=== PATIENT | female | born 1945 | race Caucasian/White ===

== ENCOUNTER 2017-05-20 10:51 | Observation (INO) | payer OTHER ==
[~2017-05-20] VITALS: Ht 160 cm; Wt 80.1 kg
[2017-05-20] MEDS ORDERED: SOD CHLORIDE 0.9% 1,000 ML IV STA (11:51)
[2017-05-20] MEDS ORDERED: ASPIRIN 325 MG TAB PO STA (11:51)
[2017-05-20] MEDS ORDERED: MULT-7 PO (12:07)
[2017-05-20] MEDS ORDERED: CHOL100062 PO (12:08)
[2017-05-20] MEDS ORDERED: GABA100C14 PO (12:09)
[2017-05-20 12:12] LABS: BASOPHILS % 0.3 % (0.0-2.0); EOSINOPHILS # 0.3 10^3/ul (0.0-0.5); HEMATOCRIT 37.5 % (37.0-47.0); HEMOGLOBIN 13.1 g/dl (12.0-16.0); LYMPHOCYTES # 1.8 10^3/ul (0.8-2.9); LYMPHOCYTES % 28.1 % (15.0-51.0); MEAN CORPUSCULAR HEMOGLOBIN 31.1 pg (29.0-33.0); MEAN CORPUSCULAR HGB CONC 34.9 g/dl (32.0-37.0); MEAN CORPUSCULAR VOLUME 89.1 fl (82.0-101.0); MEAN PLATELET VOLUME 10.6 fl (7.4-10.4); MONOCYTE # 0.5 10^3/ul (0.3-0.9); MONOCYTES % 7.2 % (0.0-11.0); NEUTROPHIL # 3.8 10^3/ul (1.6-7.5); NEUTROPHILS % 59.1 % (39.0-77.0); PLATELET COUNT 265 10^3/UL (140-415); RED BLOOD COUNT 4.21 10^6/ul (4.20-5.40); RED CELL DISTRIBUTION WIDTH 13.3 % (11.5-14.5); WHITE BLOOD COUNT 6.4 10^3/ul (4.8-10.8)
[2017-05-20 12:23] LABS: INR 0.82; PROTIME 11.3 Sec (12.2-14.2); PT RATIO 0.9
[2017-05-20 12:24] LABS: PARTIAL THROMBOPLASTIN TIME 28.6 Sec (25.0-35.0)
[2017-05-20 12:27] LABS: ALANINE AMINOTRANSFERASE 36 IU/L (13-69); ALBUMIN 4.2 g/dl (3.3-4.9); ALKALINE PHOSPHATASE 126 IU/L (42-121); ANION GAP 11 (8-16); ASPARTATE AMINO TRANSFERASE 30 IU/L (15-46); BILIRUBIN,INDIRECT 0.1 mg/dl (0-1.1); BILIRUBIN,TOTAL 0.1 mg/dl (0.2-1.3); BLOOD UREA NITROGEN 22 mg/dl (7-20); CALCIUM 9.6 mg/dl (8.4-10.2); CARBON DIOXIDE 27 mmol/L (21-31); CHLORIDE 105 mmol/L (97-110); CREATININE 0.57 mg/dl (0.44-1.00); GLUCOSE 94 mg/dl (70-220); POTASSIUM 4.7 mmol/L (3.5-5.1); SODIUM 138 mmol/L (135-144)
[2017-05-20 12:31] LABS: ALBUMIN/GLOBULIN RATIO 1.23; TOTAL PROTEIN 7.6 g/dl (6.1-8.1)
--- NOTE | 2017-05-20 12:50 | RADRPT ---
PROCEDURE: Chest radiograph CLINICAL INDICATION: Possible Stroke. COMPARISON: None relevant listed. TECHNIQUE: Single frontal chest radiograph. FINDINGS: The lungs are clear. No pleural effusion or focal parenchymal opacity. The aorta is unfolded. No cardiomegaly. No suspicious bone lesion. IMPRESSION: No acute cardiopulmonary abnormality. RPTAT: HLG Physician Yobani Date Time Electronically viewed and signed by Ike West Physician on 05/20/2017 12:49 LG/
[2017-05-20 12:53] LABS: TROPONIN-I < 0.012 ng/ml (0.00-0.12)
--- NOTE | 2017-05-20 12:59 | RADRPT ---
PROCEDURE: CT head without intravenous contrast CLINICAL INDICATION: Possible stroke. Right facial numbness. COMPARISON: None relevant listed. TECHNIQUE: Axial CT images from skull base to vertex with coronal and sagittal reformats. DOSE: The estimated administered radiation dose was CTDI vol = 45 mGy. DLP = 720 mGy-cm. One or mor e of the following dose reduction techniques were used: automated exposure control, adjustment of th e mA and/or kV according to patient size, or use of iterative reconstruction. FINDINGS: Parenchyma: No acute hemorrhage, large territorial infarction, or mass. Ventricles: No ventriculomegaly or ventricular effacement. Extra-axial spaces: No herniation or midline shift. Paranasal sinuses: Clear. Mastoids and middle ears: Clear. Visualized orbits: Normal. Vessels: No calcified atherosclerotic arterial plaque identified. Bones: Normal. Extracranial soft tissues: Normal. Additional comment: None. IMPRESSION: No acute intracranial abnormality. Durga West M.D. discussed findings with NANCY NAVARRO M.D. via telephone at 12:58 PM on 2016 with read back confirmation. RPTAT: HLG Physician Yobani Date Time Electronically viewed and signed by Physician Yobani on 05/20/2017 12:59 /
[2017-05-20] MEDS ORDERED: SOD CHLORIDE 0.9% 1,000 ML IV SCH (14:13)
--- NOTE | 2017-05-20 14:19 | ERA ---
ER Documentation Chief Complaint Date/Time DATE: 05/20/17 TIME: 14:14 Chief Complaint sent from clinic for facial numbness & tingling last night but resolved; HPI This is a 71-year-old female who is here for right facial droop. The patient states last night at 7 PM she developed sudden onset of right facial droop numbness with drooling. She said her right arm and leg have been numb and tingling for 6 weeks but they got worse last night at 7 PM as well. She said the symptoms stayed there all night long until this morning around 5 AM he started to improve. She says currently her face is back to normal but her tingling is also back to his baseline like it has been the past 6 weeks. Denies any weakness in the legs or arms only his face. No speech change or swallowing change. ROS All systems reviewed and are negative except as per history of present illness. Medications Home Meds Reported Medications Gabapentin* (Gabapentin*) 100 Mg Capsule, 100 MG PO TID, #90 CAP 05/20/17 Cholecalciferol* (Vitamin D3*) 1,000 Unit Tablet, 1000 UNIT PO BID, TAB 05/20/17 Multivitamin (Daily Multiple Vitamin) 1 Each Tablet, 1 EACH PO DAILY, TAB 05/20/17 Allergies Allergies: Coded Allergies: Penicillins (Verified Allergy, Unknown, 05/20/17) PMhx/Soc Medical and Surgical Hx: pt denies Medical Hx, pt denies Surgical Hx History of Surgery: No Anesthesia Reaction: No Hx Neurological Disorder: No Hx Respiratory Disorders: No Hx Cardiac Disorders: No Hx Psychiatric Problems: No Hx Miscellaneous Medical Probl: No Hx Alcohol Use: No Hx Substance Use: No Hx Tobacco Use: No Smoking Status: Never smoker FmHx Family History: No coronary disease Physical Exam Vitals Vital Signs Date Time Temp Pulse Resp B/P Pulse Ox O2 Delivery O2 Flow Rate FiO2 05/20/17 10:55 97.3 61 18 178/77 98 Physical Exam Const: Well-developed, well-nourished Head: Atraumatic, normocephalic Eyes: Normal Conjunctiva, PERRLA, EOMI, normal sclera, no nystagmus ENT: Normal External Ears, Nose and Mouth, moist mucus membranes. Neck: Full range of motion. No meningismus, no lymphadenopathy. Resp: Clear to auscultation bilaterally, no wheezing, rhonchi, rales Cardio: Regular rate and rhythm, no murmurs, S1 S2 present Abd: Soft, non tender x 4, non distended. Normal bowel sounds, no guarding or rebound, no pulsitile abdominal masses or bruits Skin: No petechiae or rashes, no ecchymosis , no maculopapular rash Back: No midline or flank tendernessWell-developed, well- nourishedAtraumatic, normocephalicNormal Conjunctiva, PERRLA, EOMI, normal sclera, no nystagmusNormal External Ears, Nose and Mouth, moist mucus membranes.Full range of motion. No meningismus, no lymphadenopathy.Clear to auscultation bilaterally, no wheezing, rhonchi, ralesRegular rate and rhythm, no murmurs, S1 S2 presentSoft, non tender x 4, non distended. Normal bowel sounds, no guarding or rebound, no pulsitile abdominal masses or bruitsNo petechiae or rashes, no ecchymosis , no maculopapular rashNo midline or flank tendernessNo cyanosis, or edema, FROM x 4, normal inspection, neurovascularly intact x 4 Ext: No cyanosis, or edema, FROM x 4, normal inspection, neurovascularly intact x 4 Neur: Awake and alert, STR 5/5 x 4, sensation intact x 4, no focal findings, cerebellum intac, since subjective tingling to the right arm and leg t Psych: Normal Mood and Affect Result Diagram: 05/20/17 1140 05/20/17 1140 Results 24 hrs Laboratory Tests Test 05/20/17 11:40 White Blood Count 6.410^3/ul Red Blood Count 4.2110^6/ul Hemoglobin 13.1g/dl Hematocrit 37.5% Mean Corpuscular Volume 89.1fl Mean Corpuscular Hemoglobin 31.1pg Mean Corpuscular Hemoglobin Concent 34.9g/dl Red Cell Distribution Width 13.3% Platelet Count 98623^3/UL Mean Platelet Volume 10.6fl Neutrophils % 59.1% Lymphocytes % 28.1% Monocytes % 7.2% Eosinophils % 5.0% Basophils % 0.3% Nucleated Red Blood Cells % 0.0/100WBC Neutrophils # 3.810^3/ul Lymphocytes # 1.810^3/ul Monocytes # 0.510^3/ul Eosinophils # 0.310^3/ul Basophils # 0.010^3/ul Nucleated Red Blood Cells # 0.010^3/ul Prothrombin Time 11.3Sec Prothrombin Time Ratio 0.9 INR International Normalized Ratio 0.82 Activated Partial Thromboplast Time 28.6Sec Sodium Level 138mmol/L Potassium Level 4.7mmol/L Chloride Level 105mmol/L Carbon Dioxide Level 27mmol/L Anion Gap 11 Blood Urea Nitrogen 22mg/dl Creatinine 0.57mg/dl Glucose Level 94mg/dl Calcium Level 9.6mg/dl Total Bilirubin 0.1mg/dl Direct Bilirubin 0.00mg/dl Indirect Bilirubin 0.1mg/dl Aspartate Amino Transf (AST/SGOT) 30IU/L Alanine Aminotransferase (ALT/SGPT) 36IU/L Alkaline Phosphatase 126IU/L Troponin I < 0.012ng/ml Total Protein 7.6g/dl Albumin 4.2g/dl Globulin 3.40g/dl Albumin/Globulin Ratio 1.23 Current Medications Medications (Trade) Dose Ordered Sig/Cassie Route PRN Reason Start Time Stop Time Status Last Admin Dose Admin Sodium Chloride (NS) 1,000 ml @ 1,000 mls/hr Q1H STAT IV 05/20/17 11:51 05/20/17 12:50 DC 05/20/17 12:02 Aspirin (Aspirin) 325 mg ONCE STAT PO 05/20/17 11:51 05/20/17 11:53 DC Procedures/MDM PROCEDURE: CT head without intravenous contrast CLINICAL INDICATION: Possible stroke. Right facial numbness. COMPARISON: None relevant listed. TECHNIQUE: Axial CT images from skull base to vertex with coronal and sagittal reformats. DOSE: The estimated administered radiation dose was CTDI vol = 45 mGy. DLP = 720 mGy-cm. One or more of the following dose reduction techniques were used: automated exposure control, adjustment of the mA and/or kV according to patient size, or use of iterative reconstruction. FINDINGS: Parenchyma: No acute hemorrhage, large territorial infarction, or mass. Ventricles: No ventriculomegaly or ventricular effacement. Extra-axial spaces: No herniation or midline shift. Paranasal sinuses: Clear. Mastoids and middle ears: Clear. Visualized orbits: Normal. Vessels: No calcified atherosclerotic arterial plaque identified. Bones: Normal. Extracranial soft tissues: Normal. Additional comment: None. IMPRESSION: No acute intracranial abnormality. Durga West M.D. discussed findings with NANCY NAVARRO M.D. via telephone at 12:58 PM on 05/20/2017 with read back confirmation. RPTAT: HLG Ike West Physician Date Time Electronically viewed and signed by Physician Yobani on 05/20/2017 12: 59 LG/ CC: NANCY NAVARRO DO PROCEDURE: Chest radiograph CLINICAL INDICATION: Possible Stroke. COMPARISON: None relevant listed. TECHNIQUE: Single frontal chest radiograph. FINDINGS: The lungs are clear. No pleural effusion or focal parenchymal opacity. The aorta is unfolded. No cardiomegaly. No suspicious bone lesion. IMPRESSION: No acute cardiopulmonary abnormality. RPTAT: HLG Ike West Physician Date Time Electronically viewed and signed by Physician Yobani on 05/20/2017 12: 49 LG/ CC: NANCY NAVARRO DO We will admit the patient for TIA workup Departure Diagnosis: Primary Impression: TIA (transient ischemic attack) Qualified Code: G45.9 - Transient cerebral ischemia, unspecified type Condition: Stable NANCY NAVARRO DO May 20, 2017 14:19
[2017-05-20] MEDS ORDERED: ONDANSETRON 4 MG INJ IV PRN ×2 (14:30→16:00)
[2017-05-20] MEDS ORDERED: ACETAMINOPHEN 325 MG TAB PO PRN ×2 (14:30→16:00)
--- NOTE | 2017-05-20 15:59 | HP ---
Date/Time of Note Date/Time of Note DATE: 05/20/17 TIME: 15:54 Assessment/Plan VTE Prophylaxis VTE Prophylaxis Intervention: SCD's Assessment/Plan Chief Complaint/Hosp Course Impression and plan 1. Right facial droop and numbness. Symptoms appear transient. Suspect TIA. Follow-up on MRI of the brain as well as carotid Doppler and echo. Symptoms do appear resolved at present. Will follow up with imaging. 2. Suspect hypertension. Patient noted with blood pressure as high as 178/77 on admission. Will monitor for now. 3. Obesity. Weight reduction advised. Admission process time greater than 30 minutes Discussed plan of care with Dr. Richards Problems: HPI/ROS Admit Date/Time Admit Date/Time Hx of Present Illness This is a 71-year-old female with no reported past medical history who came to [facility] due to reports of right facial numbness and facial drooping with also right upper extremity numbness. Of note patient does report having 6 months duration of right arm numbness at times but no other pain associated or weakness associated with it. She reported no upper or lower extremity weakness bilaterally. She stated that her symptoms started roughly at 7 PM last night however resolved around 2:58 AM the morning of admission. She did go to her primary care physician due to these issues and was referred to [facility] for further evaluation. Upon further examination she had BMP and CBC with no significant findings. She was noted with a blood pressure as high as 178 or 77. She did mention when her symptoms occurred she also experienced a bout of headache that was more on the occipital region however she denies any history of high blood pressure nor does she know her blood pressure was at the time of her headache and when symptoms of facial droop and numbness occurred. Patient at present during physical exam with no remarkable discrepancies. She is seen with strength +5 in bilateral upper and lower extremities. No facial droop seen. No aphasia or dysphasia. She is alert and oriented 4. Initial imaging of her brain with CT scan noncontrast showed no acute intracranial abnormality. We will evaluate her for the aformentiond issues. ROS 12 point review of systems obtained and entirely negative except as mentioned in the history of present illness PMH/Family/Social Past Medical History Medical/surgical history 1. Reports none Family History Significant Family History: no pertinent family hx Social History Alcohol Use: none Smoking Status: Never smoker Drug Use: none Exam/Review of Systems Vital Signs Vitals Vital Signs Date Time Temp Pulse Resp B/P Pulse Ox O2 Delivery O2 Flow Rate FiO2 05/20/17 13:00 97.9 59 16 136/78 98 Exam Constitutional: alert, oriented Psych: nl mood/affect Head: normocephalic Eyes: nl conjunctiva Neck: supple Respiratory: clear to auscultation, normal air movement Cardiovascular: bruits, regular rate and rhythm Gastrointestinal: non-tender, soft Musculoskeletal: nl extremities to inspection, nl gait and stance Neurological: INSPECTOR RUBBER STAMP DIE II-XII intact, nl mental status, nl speech Skin: nl turgor, rash or lesions Labs Result Diagram: 05/20/17 1140 05/20/17 1140 Medications Medications Current Medications Sodium Chloride (NS) 1,000 ml @ 80 mls/hr [id number] IV ; Start 05/20/17 at 14:13 ; Stop 05/21/17 at 02:42 BETTINA RUIZ May 20, 2017 15:59
[2017-05-20] MEDS ORDERED: MAGNESIUM HYDROXIDE 30ML CUP PO PRN (16:00)
[2017-05-20] MEDS ORDERED: HYDROCODONE/APAP (5/325) TAB PO PRN ×2 (16:00)
[2017-05-20] MEDS ORDERED: NACL 0.9% 3 ML SYG IV SCH (16:00)
[2017-05-20] MEDS ORDERED: DOCUSATE SODIUM 100 MG CAP PO PRN (16:00)
[2017-05-20] MEDS ORDERED: morphine 2 MG INJ IV PRN (16:00)
[2017-05-20] MEDS ORDERED: ACETAMINOPHEN 650 MG SUPP PR PRN (16:00)
[2017-05-20] MEDS ORDERED: BISACODYL 10 MG SUPP PR PRN (16:00)
[2017-05-20 16:32] VITALS: TEMP 98.1
--- NOTE | 2017-05-20 16:44 | RADRPT ---
PROCEDURE: US Carotids. CLINICAL INDICATION: CVA TECHNIQUE: Multiple sonographic of the carotid arteries were obtained utilizing ramirez scale imaging . Color and Doppler imaging was performed. The images were reviewed on a PACS workstation. COMPARISON: No prior studies are available for comparison. FINDINGS: Location Right Left CCA 106 cm/sec 67 cm/sec Prox ICA 64 cm/sec 73 cm/sec Mid ICA 61 cm/sec 57 cm/sec Dist ICA 56 cm/sec 67 cm/sec ECA 50 cm/sec 62 cm/sec ICA/CCA 0.8 0.8 Antegrade flow is seen within the vertebral arteries bilaterally. No significant plaque is seen with in the carotid system bilaterally. No hemodynamically significant stenosis or occlusion is identifi ed. IMPRESSION: 1. No evidence for hemodynamically significant stenosis - validated velocity measurements with angio graphic measurements, velocity criteria are extrapolated from diameter data as defined by the Societ y of Radiologists in Ultrasound Consensus Conference Radiology 2003; 229;340-346. This study does i ndirectly reference the measurement of the distal ICA diameter as the denominator for stenosis measu rement. 2. Antegrade flow seen within the vertebral arteries bilaterally. SRU Consensus Conference Criteria for the Diagnosis of Carotid Artery Stenosis Degree of Stenosis, % ICA PSV, cm/sec Plaque Estimate, % ICA/CCA PSV Ratio Normal <125 None <2.0 <50 <125 <50 <2.0 50 69 125-230 >50 2.0-4.0 >70 but less than near occlusion >230 >50 <4.0 Near occlusion High, low, or undetectable Visible Variable Total occlusion Undetectable Visible, no detectable lumen Not applicable *Cartoid artery stenosis: ramirez-scale and Doppler US diagnosis. Society of Radiologists in Ultrasound Consensus Conference. Radiology 2003; 229: 340-346 RPTAT: QQ .Hebert Esparza MD, Date Time Electronically viewed and signed by .Hebert Esparza MD, MD on 05/20/2017 16:44 .A/
[2017-05-20 17:28] VITALS: BP 179/80; RESP 18
--- NOTE | 2017-05-20 17:29 | RADRPT ---
PROCEDURE: MR Brain without intravenous contrast CLINICAL INDICATION: Cerebrovascular accident. COMPARISON: CT 05/20/2017. TECHNIQUE: Multiplanar multi-sequence images of the brain were obtained. Images acquired on a 3.0 T esla magnet. FINDINGS: Parenchyma: No acute hemorrhage, infarction, or mass. There are a few subcortical white matter FLAIR hyperintense foci, a nonspecific finding common for age. Ventricles: No ventricular enlargement or ventricular effacement. Extra-axial spaces: No herniation or midline shift. Orbits: Normal. Major intracranial flow voids: Preserved. Paranasal sinuses: Clear. Mastoids and middle ears: Clear. Bones: Old fracture of the right lamina papyracea. Extracranial soft tissues: Normal. Additional comment: None. IMPRESSION: No acute intracranial abnormality. RPTAT: HLG Physician Yobani Date Time Electronically viewed and signed by Physician Yobani on 05/20/2017 17:29 /
[2017-05-20 17:44] VITALS: PULSE 59
[2017-05-20 18:24] VITALS: Ht 160 cm; Wt 80.1 kg
[2017-05-20 18:55] VITALS: BP 149/69
[2017-05-20 20:00] VITALS: BP 131/65; PULSE 61; RESP 20
[2017-05-20 20:06] VITALS: PULSE 60
[2017-05-20] MEDS: GABAPENTIN 100 MG CAP PO SCH (20:54)
[2017-05-20] MEDS: CHOLECALCIFEROL 1,000 UNIT TAB PO SCH (21:17)
[2017-05-21] VITALS (7 sets, daily range): BP systolic 126–137; BP diastolic 65–77; PULSE 58–65; RESP 16–20
[2017-05-21 07:47] LABS: ALBUMIN 3.7 g/dl (3.3-4.9); ALBUMIN/GLOBULIN RATIO 1.19; BILIRUBIN,INDIRECT 0.2 mg/dl (0-1.1); BILIRUBIN,TOTAL 0.2 mg/dl (0.2-1.3); CALCIUM 9.1 mg/dl (8.4-10.2); CHOL/HDL RATIO 3.5 RATIO; CREATININE 0.6 mg/dl (0.44-1.00); MAGNESIUM 2.1 mg/dl (1.7-2.5); PHOSPHORUS 4.3 mg/dl (2.5-4.9); POTASSIUM 4.3 mmol/L (3.5-5.1); TOTAL PROTEIN 6.8 g/dl (6.1-8.1)
[2017-05-21 07:54] LABS: T3 UPTAKE 37.8 % (23.5-40.5)
[2017-05-21 08:08] LABS: THYROID STIMULATING HORMONE 2.42 MIU/L (0.465-4.680)
[2017-05-21] MEDS: GABAPENTIN 100 MG CAP PO SCH (08:55)
[2017-05-21] MEDS: CHOLECALCIFEROL 1,000 UNIT TAB PO SCH (08:55)
[2017-05-21] MEDS ORDERED: FAMOTIDINE 20 MG INJ IV SCH (09:00)
[2017-05-21] MEDS ORDERED: OMEG-135 PO (10:50)
--- NOTE | 2017-05-21 10:56 | PDOCDIS ---
Discharge Instructions DIAGNOSIS Discharge Diagnosis 1. Right facial droop and numbness, suspect TIA 2. Suspect hypertension. 3. Obesity. 4. Cephalgia. CONDITION Patient Condition: Stable HOME CARE INSTRUCTIONS: Special Diet: Cardiac FOLLOW UP/APPOINTMENTS Follow-up Plan 1. Follow up with your primary care provider in one week BETTINA RUIZ May 21, 2017 10:56
--- NOTE | 2017-05-21 12:21 | DS ---
Date/Time of Note Date/Time of Note DATE: 05/21/17 TIME: 12:18 Discharge Summary Admission/Discharge Info Admit Date/Time May 20, 2017 at 14:13 Discharge Date/Time May 21, 2017 at 11:47 Discharge Diagnosis 1. Right facial droop and numbness, suspect TIA 2. Suspect hypertension. 3. Obesity. 4. Cephalgia. Patient Condition: Stable Hx of Present Illness This is a 71-year-old female with no reported past medical history who came to [facility] due to reports of right facial numbness and facial drooping with also right upper extremity numbness. Of note patient does report having 6 months duration of right arm numbness at times but no other pain associated or weakness associated with it. She reported no upper or lower extremity weakness bilaterally. She stated that her symptoms started roughly at 7 PM last night however resolved around 2:58 AM the morning of admission. She did go to her primary care physician due to these issues and was referred to [facility] for further evaluation. Upon further examination she had BMP and CBC with no significant findings. She was noted with a blood pressure as high as 178 or 77. She did mention when her symptoms occurred she also experienced a bout of headache that was more on the occipital region however she denies any history of high blood pressure nor does she know her blood pressure was at the time of her headache and when symptoms of facial droop and numbness occurred. Patient at present during physical exam with no remarkable discrepancies. She is seen with strength +5 in bilateral upper and lower extremities. No facial droop seen. No aphasia or dysphasia. She is alert and oriented 4. Initial imaging of her brain with CT scan noncontrast showed no acute intracranial abnormality. We will evaluate her for the aformentiond issues. Hospital Course This is a 71-year-old female with no reported past medical history who came to [facility] due to reports of right facial numbness and facial drooping with also right upper extremity numbness. Patient did report that she initially had 6 months of right arm numbness but no associated weakness. She reported on the night prior to admission she had some facial droop but it did resolve after several hours. She initially went to her primary care physician but was referred to the hospital due to her symptoms. She did have CT scan and MRI of the brain which showed no acute intracranial findings. Additionally carotid Doppler showed no evidence for hemodynamically significant stenosis. Likely symptoms secondary to possible TIA. During the course of stay she did improve. She did report resolution of her numbness in the right upper extremity and she also had resolution of her right facial droop. She was otherwise optimized medically. She was hypertensive initially when she came to the hospital but this did resolve. She was advised weight reduction for her obesity and she was provided with analgesics as needed for her cephalgia. The plan of care was discussed with the patient and patient did verbalize understanding. On the day of discharge patient was in stable condition Discussed plan of care with Dr. Richards [place] Meds Active Scripts [place]-3 Fatty Acids/Fish Oil (Fish Oil 1,000 mg Capsule) 1 Each Capsule, 1 EACH PO DAILY for 30 Days, CAP Prov:SARABETTINA 05/21/17 Reported Medications Gabapentin* (Gabapentin*) 100 Mg Capsule, 100 MG PO TID, #90 CAP 05/20/17 Cholecalciferol* (Vitamin D3*) 1,000 Unit Tablet, 1000 UNIT PO BID, TAB 05/20/17 Multivitamin (Daily Multiple Vitamin) 1 Each Tablet, 1 EACH PO DAILY, TAB 05/20/17 Follow-up Plan 1. Follow up with your primary care provider in one week Primary Care Provider Wicho Andersen Time spent on discharge: > 30 minutes Pending Labs Laboratory Tests Test 05/21/17 06:59 Sodium Level 140mmol/L (135-144) Potassium Level 4.3mmol/L (3.5-5.1) Chloride Level 107mmol/L (97-110) Carbon Dioxide Level 27mmol/L (21-31) Anion Gap 10 (8-16) Blood Urea Nitrogen 15mg/dl (7-20) Creatinine 0.60mg/dl (0.44-1.00) Glucose Level 99mg/dl (70-220) Hemoglobin A1c 5.5% (0-5.9) Calcium Level 9.1mg/dl (8.4-10.2) Phosphorus Level 4.3mg/dl (2.5-4.9) Magnesium Level 2.1mg/dl (1.7-2.5) Total Bilirubin 0.2mg/dl (0.2-1.3) Direct Bilirubin 0.00mg/dl (0.00-0.20) Indirect Bilirubin 0.2mg/dl (0-1.1) Aspartate Amino Transf (AST/SGOT) 23IU/L (15-46) Alanine Aminotransferase (ALT/SGPT) 31IU/L (13-69) Alkaline Phosphatase 99IU/L (42-121) Total Protein 6.8g/dl (6.1-8.1) Albumin 3.7g/dl (3.3-4.9) Globulin 3.10g/dl (1.3-3.2) Albumin/Globulin Ratio 1.19 Triglycerides Level 99mg/dl (0-149) Cholesterol Level 212mg/dl (100-200) LDL Cholesterol, Calculated 133mg/dl HDL Cholesterol 59mg/dl (33-92) Cholesterol/HDL Ratio 3.5RATIO Thyroid Stimulating Hormone (TSH) 2.420MIU/L (0.465-4.680) Free Thyroxine Index 2.38ug/ml (0.65-3.89) Thyroxine (T4) 6.3ug/dl (5.5-11.0) Triiodothyronine (T3) Uptake 37.8% (23.5-40.5) BETTINA RUIZ May 21, 2017 12:21
--- NOTE | 2017-05-21 15:36 | RADRPT ---
Echocardiogram Report Patient Name: AKASH JOHNSON Gender: Female Date: 1945 Study Date: 21-May-2017 Master Brewer: ALFREDO Location: I Ref. Physician: BETTINA RUIZ Quality: Adequate Procedures: Transthoracic echocardiogram with complete 2D, M-Mode, and Doppler examination. Indications: Suspect Cerebrovascular Accident. 2D/M Mode Doppler Measurement Value Normal Ranges Measurement Value Normal Ranges AoR Diam MM 2.9 cm AV Peak Adarsh 1.5 m/sec LVIDd 2D 3.3 3.5 - 5.6 cm AV Peak PG 9.3 mmHg LVIDs 2D 2.1 2.1 - 4.1 cm LVOT Peak Adarsh 0.8 m/sec LVPWd 2D 1.1 0.6 - 1.1 cm LVOT Peak PG 2.4 mmHg IVSd 2D 1.0 0.6 - 1.1 cm MV E Peak Adarsh 0.6 m/sec EDV 2D 43.3 cm3 MV A Peak Adarsh 0.7 m/sec ESV 2D 8.9 cm3 MV E/A 0.9 LA Dimen 2D 2.9 2.3 - 4.0 cm MV Decel Time 223 msec MV Decel Sutter 3 MV E/A 0.9 TR Peak Adarsh 2.5 m/sec TR Peak PG 25.0 mmHg PV Peak Adarsh 1.1 m/sec PV Peak PG 5.0 mmHg RVSP 28.0 mmHg Findings Left Ventricle: Normal left ventricular systolic function. Normal left ventricular cavity size. Normal left ventricular wall thickness. Ejection fraction is visually estimated at 6065 %. Tissue Doppler/Mitral Doppler indices are consistent with impaired relaxation (Stage I diastolic dysfunction). Right Ventricle: Normal right ventricular size. Normal right ventricular systolic function. Left Atrium: The left atrium is normal in size. Right Atrium: The right atrium is normal in size. Atrial Septum: Normal atrial septum. Mitral Valve: Normal appearance of the mitral valve. No mitral valve regurgitation is seen. Aortic Valve: Normal appearance of the aortic valve. No hemodynamically significant aortic stenosis by doppler. Trace aortic valve regurgitation. Tricuspid Valve: Normal appearance of the tricuspid valve. Estimated peak PA systolic pressure 28 mmHg. There is trace to mild tricuspid regurgitation. Pulmonic Valve: Normal pulmonic valve appearance. There is trace pulmonic regurgitation. Pericardium: Normal pericardium with no significant pericardial effusion. No pleural effusion noted. Aorta: Normal aortic root. IVC: Normal size and normal respiratory collapse consistent with normal right atrial pressure. Pulmonary Artery: Normal pulmonary artery size. Conclusions 1.The left ventricle is normal in size and systolic function. 2.Estimated left ventricular ejection fraction of 60-65%. 3.Grade 1 diastolic dysfunction. Electronically Signed By: Jim Acosta 21-May-2017 15:35:17 -0700 Patient Name: AKASH JOHNSON Study Date: 21-May-2017 [id number]
== END 2017-05-21 11:47 | disposition home or self-care (01) ==
LOC: E/R 10:51 → MS4 14:13
PROVIDERS: ADMIT Hospitalist; ATTEND Hospitalist
DX: R29.810 Facial weakness (principal); R20.0 Anesthesia of skin; E66.9 Obesity, unspecified; Z68.31 Body mass index [BMI] 31.0-31.9, adult; R51 Headache; Z88.0 Allergy status to penicillin
CPT/HCPCS: 36415; 70450; 70551; 71010; 80053; 80061; 83036; 83735; 84100; 84436; 84443; 84479; 84484; 85025; 85610; 85730; 93005; 93306; 93880; 96374; 99285; G0378; J7030